=== PATIENT | male | born 2000 | race African-American/Black ===

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

== ENCOUNTER 2023-11-22 14:06 | Emergency (ER) | payer MEDICAID, OTHER ==
[~2023-11-22] VITALS: Ht 190.5 cm; Wt 78.0 kg
[2023-11-22 14:19] VITALS: BP 130/76; PULSE 58; RESP 16; TEMP 98.8; O2SAT 100
[2023-11-22] MEDS: CYCLOBENZAPRINE 10MG TABLET PO ONE (18:15)
[2023-11-22] MEDS: KETOROLAC 30MG/ML VIAL IM ONE (18:15)
[2023-11-22] MEDS ORDERED: TOPUD MT (18:36)
[2023-11-22] MEDS ORDERED: IBUP-2028 MT (18:36)
[2023-11-22] MEDS ORDERED: CYCL5TAB MT (18:36)
== END 2023-11-22 18:59 | disposition home or self-care (01) ==
LOC: ER 14:06
DX: S40.012A Contusion of left shoulder, initial encounter (principal); S00.83XA Contusion of other part of head, initial encounter; V49.9XXA Car occupant (driver) (passenger) injured in unspecified traffic accident, initial encounter; Y93.89 Activity, other specified; Y92.89 Other specified places as the place of occurrence of the external cause; Y99.8 Other external cause status
CPT/HCPCS: 99283; 73030; 96372; J1885